=== PATIENT | female | born 1950 | race African-American/Black ===

== ENCOUNTER 2025-03-22 21:11 | Emergency (ER) | payer MEDICAID, MEDICARE, OTHER ==
[~2025-03-22] VITALS: Ht 162.6 cm; Wt 84.0 kg
[~2025-03-22 21:11] MED LIST: NAPR60CR2
[2025-03-22 21:23] VITALS: O2SAT 99
[2025-03-22 21:42] VITALS: TEMP 37
[2025-03-22] MEDS: DEXAMETHASONE 4MG TABLET PO ONE (22:19)
[2025-03-22] MEDS: ACETAMINOPHEN 500MG TABLET PO ONE (22:19)
[2025-03-22 22:28] LABS: BASOPHILS % 0.5 % (0.0-2.0); EOSINOPHILS % 3.3 % (0.0-5.0); HEMATOCRIT. 35.2 % (36.0-48.0); HEMOGLOBIN. 11.2 g/dL (12.0-16.0); LYMPHOCYTES % 47.0 % (20.0-50.0); MEAN PLATELET VOLUME 9.0 fl (7.4-10.4); MONOCYTES % 7.9 % (2.0-8.0); NEUTROPHILS % 41.3 % (40.0-76.0); PLATELET 323 x1000/uL (130-400); RED BLOOD CELL COUNT 4.28 mill/uL (4.2-5.4); RED CELL DISTRIBUTION WIDTH 15.2 % (11.6-14.6)
[2025-03-22 22:36] LABS: INR 0.9
[2025-03-22 22:38] VITALS: TEMP 98.6
[2025-03-22 22:44] LABS: CREATININE 1.3 mg/dL (0.6-1.0); UREA NITROGEN BLOOD 15 mg/dL (9-23)
[2025-03-23] MEDS: MORPHINE SULFATE 4 MG/ML INJ (FOR IV/IM USE) IV ONE (00:53)
[2025-03-23] MEDS ORDERED: LIDO-53 TP (01:17)
[2025-03-23] MEDS: AMLODIPINE 5MG TABLET PO ONE (02:10)
[2025-03-23 03:09] VITALS: BP 168/76; PULSE 80; RESP 14; O2SAT 98
== END 2025-03-23 03:25 | disposition home or self-care (01) ==
LOC: ER 21:11 → CMPBEDREQ 03-23 05:16
DX: M47.22 Other spondylosis with radiculopathy, cervical region (principal); E11.9 Type 2 diabetes mellitus without complications; E78.00 Pure hypercholesterolemia, unspecified; I10 Essential (primary) hypertension; Z88.5 Allergy status to narcotic agent
CPT/HCPCS: 99285; 80048; 82962; 83735; 85025; 85610; 36415; 96374; 72125; J8540; J2270